=== PATIENT | female | born 1950 | race Caucasian/White ===

== ENCOUNTER → 2017-07-03 | Outpatient (CLI) | payer OTHER | LOC: MRI 10:50 → RAD 10:50 | DX: Z12.31 Encounter for screening mammogram for malignant neoplasm of breast (principal); R41.3 Other amnesia ==

== ENCOUNTER → 2017-07-14 | Outpatient (CLI) | payer OTHER | LOC: NUC 14:06 | DX: M85.80 Other specified disorders of bone density and structure, unspecified site (principal); Z78.0 Asymptomatic menopausal state ==

== ENCOUNTER 2017-09-18 09:35 | Outpatient (CLI) | payer OTHER ==
[~2017-09-18] VITALS: Ht 157.5 cm; Wt 93.9 kg
--- NOTE | ~2017-09-18 | EKG ---
[address] [address] ELECTROCARDIOGRAM REPORT Name: ANDRÉS BOWEN Room #: DEP MAGGIE Franklin#: [id number] Admission: 09/18/17 Attend Phys: Saulo Emery Discharge: 09/19/17 Date of : 46 Report #: [id number] THIS REPORT FOR: //name// [facility] Test Date: 2017-09-19 Test Time: 10:05:54 Pat Name: ANDRÉS BOWEN Department: Room: 201 P Gender: F Hardware Design Engineer: bentley : 1950 Requested By: Shawn Hernandez Order Number: [id number] MD: Shawn Hernandez Measurements Intervals [place] Rate: 98 P: 50 ME: 131 QRS: 45 QRSD: 76 T: 57 QT: 349 QTc: 446 Interpretive Statements Sinus rhythm Abnormal R-wave progression, early transition Borderline T wave abnormalities Baseline wander in lead(s) V2,V3 Compared to ECG 09/18/2017 11:16:27 T-wave abnormality now present Electronically Signed On 09-19-2017 17:27:31 OUTREACH ANALYST by Shawn Hernandez [email or web address] <ELECTRONICALLY SIGNED> By: Shawn Hernandez MD 09/19/17 1727 1005 1005 Shawn Hernandez MD /EPI
--- NOTE | ~2017-09-18 | CATHLAB ---
[facility] [place] [address] INVASIVE PROCEDURE REPORT Name: ANDRÉS BOWEN Room #: DEP Rigoberto#: [id number] Admission: 09/18/17 Attend Phys: Saulo Bryant Discharge: 09/19/17 Date of : 46 Date of Service: 09/23/17 1624 Report #: [id number] THIS REPORT FOR: //name// APPROVED REPORT Patient Details Patient Status: In-Patient Room #: The patient is a 67 year-old female Event Personnel Saulo Emery Naturalization Examiner, Natalie Herrera Monitor, Haven Fairbanks [place], Ariel RN RN, Ang Heath Side Laster Staple, Angelica Tello Monitor Procedures Performed Left Heart Cath w/or w/o Coronaries [id number] [facility] [address] [address] w/wo Plasty Single LAD [id number], supervision of conscious sedation Indication Positive stress test, Chest pain Procedure Narrative The Right Groin^ was infiltrated with 1% Lidocaine subcutaneous anesthesia. A PINNACLE 6FR Sheath #[id number] sheath was inserted into the RFA^. Coronary angiography was performed using coronary diagnostic catheters. The right coronary system was accessed and visualized with a JR4 catheter. The left coronary system was accessed and visualized with a JL4 catheter. The left ventricle was accessed and visualized with a PIGTAIL catheter. Left ventricular/Aortic Valve gradient assessed via catheter pullback. The patient tolerated the procedure well and there were no complications associated with the procedure. Intraoperative Conscious Sedation Sedation start time: 13.07 Case end Time: 13.42 Versed 2.0 mg Fluoro Time: 6.30 minutes Dose: DAP 6800.18 cGycm2 1011 mGy Contrast Type and Amount: Omnipaque 100 ml Coronary Angiography The patient's coronary anatomy is right dominant. [facility] [address] [place] [address] INVASIVE PROCEDURE REPORT Name: ANDRÉS BOWEN Room #: [facility] Rigoberto#: [id number] Admission: 09/18/17 Attend Phys: Saulo Bryant Discharge: 09/19/17 Date of : 46 Date of Service: 09/23/17 1624 Report #: [id number] Diagnostic Cath Left Main Normal origin and caliber. The short length which bifurcates into the left anterior descending and left circumflex free of high-grade disease LAD Moderate caliber vessel which courses in the anterior interventricular sulcus free of high-grade disease in its mid and distal segments. In the proximal segment prior to the origin of the first diagonal and first circumflex there is a high-grade eccentric lesion identified. The LAD proper then continues in the anterior interventricular sulcus giving rise to septal and diagonal branches terminating as a small bifurcating vessel and the posterior inferior wall of the apex Diagonal 1 Small-caliber vessel with a high-grade ostial lesion involved in the LAD stenosis. It then reconstitutes coursing a short distance in the anterolateral wall tapering rapidly. The vessel is less than 1.5 mm in diameter Circumflex Moderate caliber vessel which gives rise to an early marginal versus ramus which is quite small in size. The circumflex that continues posteriorly in the AV groove giving rise to a larger second marginal branch that bifurcates to lateral and inferolateral wall vessels. It then terminates in the posterior wall in the AV groove as a small 1 mm or less caliber vessel OM1 Diminutive size vessel free of high-grade disease OM2 Moderate caliber bifurcating vessel which gives rise to no significant high-grade lesions as it courses along the lateral aspect of the left ventricle Right Coronary Moderate to large caliber vessel of normal origin and courses in the AV groove posteriorly. At the acute margin a small insignificant caliber RV marginal branch arises. The vessel then continues on giving rise to a posterior descending artery at the crux of the heart and terminating as a small multibranch vessel posteriorly. R PDA Moderate caliber vessel without significant high-grade lesions noted Left Ventriculography Left Ventriculography was not performed. Hemodynamics The aortic pressure is 157/77 mmHg with a mean of 97 mmHg. The left ventricular pressure is 178/14 mmHg with a mean of mmHg. The left ventricular end diastolic pressure is 34 mmHg. PCI Technique Following the determination that and Ryne plasty was indicated the [facility] [address] [place] [address] INVASIVE PROCEDURE REPORT Name: ANDRÉS BOWEN Room #: ERIC Franklin#: [id number] Admission: 09/18/17 Attend Phys: Saulo Bryant Discharge: 09/19/17 Date of : 46 Date of Service: 09/23/17 1624 Report #: [id number] diagnostic system was then removed and a 6 Maori guide was advanced. Utilizing a 0.014 wire and predilated with a 2.5 mm balloon of the proximal LAD lesion was dilated. A 2.5 mm Medtronic resolute stent was then positioned across the lesion and dilated as described in the chart providing full dilatation of the stent. A noncompliant balloon was utilized to optimize the mid stent region which had a small indentation prior to the noncompliant balloon. The vessel was brisk there is no loss of side branch distal embolization or intraluminal disruption. The first diagonal branch was involved initially in the lesion remained visualized without occlusion. Patient tolerated procedure well number complications PCI Technique Lesion Percutaneous coronary intervention was performed on the proximal left anterior descending artery segment. A LAUNCHER 6FR JL4 #[id number] Guide Catheter was used to engage the ostium. A Luge Wire (J) .014 X 182CM #[id number] Interventional Guidewire was used to cross the lesion. STENT DEPLOYMENT A drug-eluting stent RESOLUTE OTW 2.5 X 8 #[id number] was inserted and inflated up to 16.00atm for 18seconds. Additional Inflation: 14.00atm for 11seconds. POST STENT DEPLOYMENT BALLOON DILATION A Balloon catheter Euphora NC RX 3.0 x 8 #[id number] was inserted and inflated up to 18.00atm for 10seconds. Additional Inflation: 18.00atm for 5seconds. Conclusion 1. Coronary artery disease single vessel involving the proximal left anterior descending artery first septal software engineering supervisor and first diagonal branch 2. Successful percutaneous revascularization with a Medtronic resolute ADAM 2.5 mm deployed at 16 aaron 3. Normal hemodynamics Recommendations Cardiac Risk Reduction Program Aggressive Medical Therapy [facility] [address] [place] [address] INVASIVE PROCEDURE REPORT Name: ANDRÉS BOWEN Room #: DEP CL DrewCheryl#: [id number] Admission: 09/18/17 Attend Phys: Saulo Bryant Discharge: 09/19/17 Date of : 46 Date of Service: 09/23/17 162 Report #: [id number] Medications Administered Ticagrelor <ELECTRONICALLY SIGNED> By: Saulo Emery MD 09/23/17 1624 23 23 Saulo Emery MD /INF
--- NOTE | ~2017-09-18 | EKG ---
[address] [place] [address] ELECTROCARDIOGRAM REPORT Name: ANDRÉS BOWEN Room #: 201-P [facility]#: [id number] Admission: 09/18/17 Attend Phys: Saulo Emery Discharge: Date of : 46 Report #: [id number] THIS REPORT FOR: //name// [facility] Test Date: 2017-09-18 Test Time: 11:16:27 Pat Name: ANDRÉS BOWEN Department: Room: Gender: F Internal Medicine Hospitalist: Eugene OVIEDO : 1950 Requested By: Saulo Emery Order Number: [id number] MD: Shawn Hernandez Measurements Intervals [place] Rate: 70 P: 31 [place]: 160 QRS: 31 QRSD: 75 T: 25 QT: 389 QTc: 420 Interpretive Statements Sinus rhythm Abnormal R-wave progression, early transition No previous ECG available for comparison Electronically Signed On 09-19-2017 8:23:53 REFUND SPECIALIST by Shawn Hernandez [email or web address] <ELECTRONICALLY SIGNED> By: Shawn Hernandez MD 09/19/17 0823 1116 15 Shawn Hernandez MD /ARIN
--- NOTE | ~2017-09-18 | D ---
[facility] [place] [address] [address] [place] [address] DISCHARGE SUMMARY Name: ANDRÉS BOWEN Room #: DEP MAGGIE Franklin#: [id number] Admission: 09/18/17 Attend Phys: Saulo Emery Discharge: 09/19/17 Date of : 46 Report #: [id number] THIS REPORT FOR: //name// CC: Saulo Moran SaivtaBrandon DISCHARGE DIAGNOSES: 1. Unstable angina. 2. Coronary artery disease. 3. Abnormal stress test. PROCEDURES PERFORMED: Stent placement to the LAD. HISTORY: The patient is a 67-year-old who was having increased shortness of breath, had an abnormal nuclear stress test and came in for elective cardiac catheterization and was found to have a high-grade lesion in the LAD that was successfully stented. HOSPITAL COURSE: She did well post-procedure. She had some rebleeding after sheath pulls and pressure was held and hemostasis was obtained. On the day of discharge, the patient was doing well. She denied any chest pain or shortness of breath. She denied any PND or orthopnea. On telemetry, she was in sinus rhythm with some sinus tachycardia. PHYSICAL EXAMINATION: HEART: Regular rate and rhythm. LUNGS: Clear bilaterally. ABDOMEN: Soft, nontender, nondistended. EXTREMITIES: No clubbing, cyanosis, edema and she had some mild ecchymosis of the right groin, but there was no persistence of a hematoma. As such, she was deemed stable for discharge home with instructions to follow up in discharge to follow up in 4 weeks. She will continue on aspirin, diltiazem, oxybutynin, Plavix 75 a day, aspirin 325 a day and nitroglycerin p.r.n. <ELECTRONICALLY SIGNED> By: Shawn Hernandez MD 09/21/17 1308 0947 1036 Shawn Hernandez MD /nt
[2017-09-18 10:41] VITALS: BP 147/72
[2017-09-18] MEDS ORDERED: LIPITOR 20 MG T20 M1 PO (10:46)
[2017-09-18] MEDS ORDERED: CARDIZEM CD360 MG PO (10:47)
[2017-09-18] MEDS ORDERED: OXYBUTYNIN 5 MG5 M2 PO (10:48)
[2017-09-18 10:52] LABS: HEMATOCRIT 43.8 % (37.0-47.0); HEMOGLOBIN 15.3 gm/dL (12.0-15.0); MCH 30.9 pg (26.0-34.0); MCV 88.3 fL (80.0-100.0); RBC 4.96 mil/uL (4.20-5.00); RDW 12.7 % (10.5-14.5); WBC 7.2 thou/uL (4.0-11.0)
[2017-09-18 11:00] LABS: CALCIUM 9.2 mg/dL (8.5-10.1); CREATININE 0.8 mg/dL (0.6-1.0); POTASSIUM 3.7 mmol/L (3.5-5.1)
[2017-09-18] MEDS ORDERED: CLOPIDOGREL75 MG PO (15:29)
[2017-09-18] MEDS ORDERED: ASPIRIN325 PO (15:29)
[2017-09-18] MEDS ORDERED: NITROGLYCERIN0.4 MG SUBLING (15:29)
[2017-09-18 17:30] VITALS: BP 153/73
[2017-09-18 17:45] VITALS: BP 131/64
[2017-09-18 18:00] VITALS: BP 152/77
[2017-09-18 18:15] VITALS: BP 131/68
[2017-09-18 19:20] VITALS: BP 157/81
[2017-09-19 00:04] VITALS: BP 141/74
[2017-09-19 03:08] VITALS: BP 135/72
[2017-09-19 04:48] LABS: HEMATOCRIT 41.8 % (37.0-47.0); MCHC 33.5 g/dL (28.0-37.0); MCV 89.4 fL (80.0-100.0); RBC 4.68 mil/uL (4.20-5.00); WBC 8.3 thou/uL (4.0-11.0)
[2017-09-19 05:02] LABS: CALCIUM 8.2 mg/dL (8.5-10.1); CREATININE 0.8 mg/dL (0.6-1.0); POTASSIUM 3.6 mmol/L (3.5-5.1)
[2017-09-19 08:01] VITALS: BP 149/84
[2017-09-19 10:16] VITALS: BP 149/84
[2017-09-19 12:48] VITALS: BP 149/84
== END 2017-09-19 13:42 | disposition home or self-care (01) ==
LOC: CATH 09:35 → 2N 17:28 → CATH 09-19 13:42
PROVIDERS: Internal Medicine
DX: I25.10 Atherosclerotic heart disease of native coronary artery without angina pectoris (principal); I11.9 Hypertensive heart disease without heart failure; E78.5 Hyperlipidemia, unspecified; J45.909 Unspecified asthma, uncomplicated; K21.9 Gastro-esophageal reflux disease without esophagitis; Z82.49 Family history of ischemic heart disease and other diseases of the circulatory system; Z88.6 Allergy status to analgesic agent; Z86.73 Personal history of transient ischemic attack (TIA), and cerebral infarction without residual deficits; Z79.82 Long term (current) use of aspirin; Z79.899 Other long term (current) drug therapy; Z98.890 Other specified postprocedural states
CPT/HCPCS: 10081

== ENCOUNTER → 2017-11-19 | Outpatient (CLI) | payer OTHER ==
[~2017-11-19] MED LIST: ASPIRIN325 PO; CARDIZEM CD360 MG PO; CLOPIDOGREL75 MG PO; LIPITOR 20 MG T20 M1 PO; NITROGLYCERIN0.4 MG SUBLING; OXYBUTYNIN 5 MG5 M2 PO
== END ==
LOC: SLEEPLAB 07:14
DX: G47.33 Obstructive sleep apnea (adult) (pediatric) (principal)

== ENCOUNTER → 2018-07-26 | Outpatient (CLI) | payer OTHER | LOC: RAD 02:00 | DX: Z12.31 Encounter for screening mammogram for malignant neoplasm of breast (principal) ==

== ENCOUNTER → 2019-07-25 | Outpatient (CLI) | payer OTHER | LOC: RAD 01:31 | DX: Z12.31 Encounter for screening mammogram for malignant neoplasm of breast (principal) ==

== ENCOUNTER → 2019-09-16 | Outpatient (CLI) | payer OTHER | LOC: ULTRA 09:12 | DX: M71.22 Synovial cyst of popliteal space [Baker], left knee (principal) ==

== ENCOUNTER → 2019-10-26 | Outpatient (CLI) | payer OTHER | LOC: RAD 12:48 | DX: J98.4 Other disorders of lung (principal) ==

== ENCOUNTER → 2020-03-26 | Outpatient (CLI) | payer OTHER | LOC: SJCVC 10:41 | PROVIDERS: ATTEND Internal Medicine | DX: I25.10 Atherosclerotic heart disease of native coronary artery without angina pectoris (principal); I10 Essential (primary) hypertension; J45.909 Unspecified asthma, uncomplicated; E78.5 Hyperlipidemia, unspecified; Z79.899 Other long term (current) drug therapy; Z79.82 Long term (current) use of aspirin; Z82.49 Family history of ischemic heart disease and other diseases of the circulatory system ==

== ENCOUNTER → 2020-04-17 | Outpatient (CLI) | payer OTHER | LOC: SJCVCIMAG 07:30 | PROVIDERS: ATTEND Internal Medicine | DX: R00.0 Tachycardia, unspecified (principal); I25.10 Atherosclerotic heart disease of native coronary artery without angina pectoris; Z79.82 Long term (current) use of aspirin; Z79.899 Other long term (current) drug therapy; Z88.5 Allergy status to narcotic agent; Z88.6 Allergy status to analgesic agent ==

== ENCOUNTER → 2020-08-21 | Outpatient (CLI) | payer OTHER | LOC: BC 11:02 | PROVIDERS: ATTEND Family Medicine | DX: Z12.31 Encounter for screening mammogram for malignant neoplasm of breast (principal) ==

== ENCOUNTER → 2021-09-10 | Outpatient (CLI) | payer OTHER | LOC: BC 10:11 | PROVIDERS: ATTEND Family Medicine | DX: Z12.31 Encounter for screening mammogram for malignant neoplasm of breast (principal); N64.89 Other specified disorders of breast ==